=== PATIENT | female | born 1990 | race Caucasian/White ===

== ENCOUNTER 2024-08-09 11:24 | Emergency (ER) | payer BC ==
[2024-08-09] MEDS ORDERED: PRED50TA PO (23:12)
[2024-08-09] MEDS ORDERED: NITR100C6 PO (23:12)
== END 2024-08-09 16:00 | disposition home or self-care (01) ==
LOC: ER 11:30
DX: Z53.21 Procedure and treatment not carried out due to patient leaving prior to being seen by health care provider (principal)

== ENCOUNTER → 2024-08-09 | Emergency (ER) | payer BC ==
[~2024-08-09] VITALS: Ht 162.6 cm; Wt 67.1 kg
[~2024-08-09] MED LIST: NITR100C6 PO; PRED50TA PO; predniSONE 20 MG TABLET ONE
[2024-08-09] MEDS: predniSONE 50 MG TABLET PO ONE (22:58)
[2024-08-09 23:24] VITALS: BP 134/81; TEMP 98; O2SAT 99
== END | disposition left against medical advice (07) ==
LOC: EDUNIT# 22:24 → ER 22:24
DX: T78.40XA Allergy, unspecified, initial encounter (principal); I10 Essential (primary) hypertension; Z88.0 Allergy status to penicillin; Z88.2 Allergy status to sulfonamides; Y92.89 Other specified places as the place of occurrence of the external cause
CPT/HCPCS: 99283; J7512

== ENCOUNTER 2025-03-26 20:08 | Inpatient (IN) | payer BC ==
[~2025-03-26] VITALS: Ht 162.6 cm; Wt 72.1 kg
[~2025-03-26 20:08] MED LIST changes: -predniSONE 20 MG TABLET ONE
[2025-03-26] MEDS: IV NS 0.9% 1,000 ML BAG IV ONE (20:40)
[2025-03-26] MEDS ORDERED: FOLIC ACID 1 MG TABLET ONE (20:40)
[2025-03-26] MEDS ORDERED: ONDANSETRON HCL/PF 4 MG/2 ML VIAL ONE (20:40)
[2025-03-26] MEDS ORDERED: MULTIVITAMINS,THERAGRAN 1 UDTAB TABLET ONE (20:40)
[2025-03-26] MEDS ORDERED: THIAMINE HCL 100 MG TABLET ONE (20:40)
[2025-03-26 20:50] LABS: RED BLOOD CELL COUNT(AUTO) 4.00 MIL/uL (4.0-5.2); RED CELL DISTRIBUTION WIDTH 14.7 % (11.5-15.0); WHITE BLOOD COUNT (AUTO) 4.8 K/uL (4.3-11.0)
[2025-03-26 20:55] LABS: PLATELET COUNT (AUTO) 63 K/uL (150-450)
[2025-03-26 20:58] LABS: ASPARTATE AMINOTRANSFERASE 418.0 U/L (15-37); CALCIUM, SERUM 8.6 mg/dL (8.5-10.1); CREATININE 0.7 mg/dL (0.6-1.3); SODIUM SERUM 132.0 mmol/L (136-145); TOTAL PROTEIN, SERUM 7.7 g/dL (6.4-8.2); UREA NITROGEN, BLOOD 7.0 mg/dL (7-18)
[2025-03-26] MEDS: FOLIC ACID 1 MG TABLET PO ONE (21:02)
[2025-03-26] MEDS: MULTIVITAMINS,THERAGRAN 1 UDTAB TABLET PO SCH (21:02)
[2025-03-26] MEDS: THIAMINE HCL 100 MG TABLET PO ONE (21:03)
[2025-03-26 21:08] LABS: LYMPHOCYTES % (MANUAL) 3 % (16-48); MONOCYTES % (MANUAL) 6 % (0-11.0); NEUTROPHILS % (MANUAL) 91 (42-76)
[2025-03-26 21:09] LABS: PLATELET ESTIMATE DECREASED
[2025-03-26] MEDS: ONDANSETRON HCL/PF 4 MG/2 ML VIAL IVP ONE (21:09)
[2025-03-26] MEDS ORDERED: LEVETIRACETAM (500MG) 500 MG/5 ML VIAL IV ONE (21:11)
[2025-03-26] MEDS: LEVETIRACETAM (500MG) 1,000 MG in IV NS 0.9% 90 ML IV SCH (21:17)
[2025-03-26 21:58] LABS: APPEARANCE,URINE SLIGHTLY CLOUDY (CLEAR); BLOOD, URINE 2+ Ery/uL (NEGATIVE); LEUKOCYTE ESTERASE ,URINE NEGATIVE (NEGATIVE); NITRITE, URINE NEGATIVE (NEGATIVE); UGLUCOSE TRACE mg/dL (NEGATIVE)
[2025-03-26 21:59] LABS: PREGNANCY TEST URINE QUAL NEGATIVE (NEGATIVE)
[2025-03-26 22:07] LABS: ADD URINE CULTURE YES
[2025-03-26 22:08] LABS: FINE GRANULAR CASTS,URINE Few /LPF (None Seen)
[2025-03-26 22:46] LABS: AMPHETAMINE, URINE NEGATIVE (NEGATIVE); BARBITURATE, URINE NEGATIVE (NEGATIVE); BENZODIAZEPINE, URINE NEGATIVE (NEGATIVE); CANNABINOID, URINE NEGATIVE (NEGATIVE); COCCAINE, URINE NEGATIVE (NEGATIVE); OPIATE, URINE NEGATIVE (NEGATIVE)
[2025-03-26] MEDS ORDERED: ACETAMINOPHEN 325 MG TABLET PO PRN (23:00)
[2025-03-26] MEDS ORDERED: MAG HYDROX/AL HYDROX/SIMETH 30 ML UDC PO PRN (23:00)
[2025-03-26] MEDS ORDERED: MAGNESIUM HYDROXIDE 30 ML UDC PO PRN (23:00)
[2025-03-26] MEDS ORDERED: KETOROLAC TROMETHAMINE INJ 30 MG/ML VIAL ONE (23:05)
[2025-03-26] MEDS: KETOROLAC TROMETHAMINE INJ 30 MG/ML VIAL IV ONE (23:08)
[2025-03-26 23:42] LABS: INR 1.3 (0.91-1.10)
[2025-03-26] MEDS: IV D5/ 0.9% NACL 1,000 ML IV ONE (23:51)
[2025-03-27] MEDS: CHLORDIAZEPOXIDE HCL 25 MG CAPSULE PO SCH
[2025-03-27] MEDS ORDERED: ONDANSETRON HCL/PF 4 MG/2 ML VIAL ONE (01:40)
[2025-03-27] MEDS ORDERED: ACETAMINOPHEN 325 MG TABLET ONE (01:49)
[2025-03-27] MEDS: ONDANSETRON HCL/PF 4 MG/2 ML VIAL IVP PRN (01:52)
[2025-03-27] MEDS ORDERED: CHLORDIAZEPOXIDE HCL 25 MG CAPSULE ONE (02:09)
[2025-03-27] MEDS: IV NS 0.9% 1,000 ML IV PRN (04:17)
[2025-03-27 07:17] LABS: RED BLOOD CELL COUNT(AUTO) 3.49 MIL/uL (4.0-5.2); RED CELL DISTRIBUTION WIDTH 14.4 % (11.5-15.0); WHITE BLOOD COUNT (AUTO) 4.0 K/uL (4.3-11.0)
[2025-03-27 07:21] LABS: PLATELET COUNT (AUTO) 35 K/uL (150-450)
[2025-03-27 07:26] LABS: ASPARTATE AMINOTRANSFERASE 418 U/L (15-37); CALCIUM, SERUM 7.7 mg/dL (8.5-10.1); CREATININE 0.5 mg/dL (0.6-1.3); PHOSPHORUS 1.4 mg/dL (2.5-4.9); SODIUM SERUM 133 mmol/L (136-145); TOTAL PROTEIN, SERUM 6.4 g/dL (6.4-8.2); UREA NITROGEN, BLOOD 6 mg/dL (7-18)
[2025-03-27 07:27] LABS: LYMPHOCYTES % (MANUAL) 12 % (16-48); MONOCYTES % (MANUAL) 4 % (0-11.0); NEUTROPHILS % (MANUAL) 81 (42-76); PLATELET ESTIMATE DECREASED; REACTIVE LYMPHOCYTES 3 % (0-0)
[2025-03-27] MEDS ORDERED: AMPH30TA3 PO (07:40)
[2025-03-27] MEDS ORDERED: ALPR0.5T8 PO (07:40)
[2025-03-27] MEDS ORDERED: LEVE500T20 PO (07:40)
[2025-03-27] MEDS ORDERED: AMLO2.5T4 PO (07:40)
[2025-03-27 08:00] VITALS: BP 120/86; TEMP 98.1; O2SAT 96
[2025-03-27 08:17] LABS: LACTIC ACID 2.3 mmol/L (0.4-2.0)
[2025-03-27] MEDS ORDERED: LEVETIRACETAM (500MG) 500 MG in IV NS 0.9% 100 ML IV SCH (09:00)
[2025-03-27] MEDS ORDERED: MULTIVITAMINS,THERAGRAN 1 UDTAB TABLET PO SCH (09:00)
[2025-03-27] MEDS: PANTOPRAZOLE 40 MG VIAL IV SCH (09:09)
[2025-03-27] MEDS: LEVETIRACETAM (500MG) 1,000 MG in IV NS 0.9% 90 ML IV SCH (09:09)
[2025-03-27] MEDS: THIAMINE HCL 100 MG TABLET PO SCH (09:09)
[2025-03-27] MEDS ORDERED: LORAZEPAM INJ 2 MG/ML VIAL IM PRN (12:30)
[2025-03-27] MEDS: IV LR 1000 ML 1,000 ML IV SCH (12:37)
[2025-03-27] MEDS: Sodium Phosphate 15 MMOL in IV NS 0.9% 245 ML IV ONE (15:28)
[2025-03-27 15:59] VITALS: BP 114/75; TEMP 98.2; O2SAT 94
[2025-03-27 20:00] VITALS: BP 111/71; TEMP 98.2; O2SAT 97
[2025-03-27 21:52] VITALS: BP 128/70
[2025-03-28 01:47] VITALS: BP 132/82
[2025-03-28 06:33] LABS: INR 1.6 (0.91-1.10)
[2025-03-28 06:40] LABS: RED BLOOD CELL COUNT(AUTO) 3.18 MIL/uL (4.0-5.2); RED CELL DISTRIBUTION WIDTH 14.8 % (11.5-15.0); WHITE BLOOD COUNT (AUTO) 2.3 K/uL (4.3-11.0)
[2025-03-28 06:53] LABS: ASPARTATE AMINOTRANSFERASE 401.0 U/L (15-37); TOTAL PROTEIN, SERUM 6.0 g/dL (6.4-8.2)
[2025-03-28 07:03] LABS: SERUM AMMONIA 68.0 umol/L (11-32)
[2025-03-28 07:05] LABS: PLATELET COUNT (AUTO) 30 K/uL (150-450)
[2025-03-28 07:15] LABS: BAND % (MANUAL) 2 % (0.0-5.0); LYMPHOCYTES % (MANUAL) 23 % (16-48); MONOCYTES % (MANUAL) 1 % (0-11.0); NEUTROPHILS % (MANUAL) 74 (42-76)
[2025-03-28 07:16] LABS: PLATELET ESTIMATE DECREASED
[2025-03-28 07:24] LABS: CALCIUM, SERUM 8.2 mg/dL (8.5-10.1); CREATININE 0.5 mg/dL (0.6-1.3); PHOSPHORUS 1.2 mg/dL (2.5-4.9); SODIUM SERUM 137.0 mmol/L (136-145); UREA NITROGEN, BLOOD 5.0 mg/dL (7-18)
[2025-03-28 08:00] VITALS: BP 125/89; TEMP 99.7; O2SAT 98
[2025-03-28] MEDS: POTASSIUM CL. PREMIX PERIPHER. 50 ML IV SCH (11:00)
[2025-03-28] MEDS: Sodium Phosphate 30 MMOL in IV NS 0.9% 250 ML IV SCH (12:01)
[2025-03-28] MEDS: Thiamine 100 MG in IV D5W 50 ML IV SCH (13:04)
[2025-03-28] MEDS: Magnesium 1GM/D5W 100ML PREMIX 100 ML IV SCH (14:45)
[2025-03-28 16:01] VITALS: BP 125/85; TEMP 97.8; O2SAT 97
[2025-03-28 20:00] VITALS: BP 125/87; TEMP 98.2; O2SAT 97
[2025-03-28 21:07] LABS: HBSAG SCREEN Negative (Negative); HEPATITIS A AB, IgM Negative (Negative); HEPATITIS B CORE AB, IgM Negative (Negative)
[2025-03-29 06:42] LABS: INR 1.99 (0.91-1.10)
[2025-03-29 07:18] LABS: CALCIUM, SERUM 8.7 mg/dL (8.5-10.1); CREATININE 0.7 mg/dL (0.6-1.3); PHOSPHORUS 2.0 mg/dL (2.5-4.9); UREA NITROGEN, BLOOD 3.0 mg/dL (7-18)
[2025-03-29 07:29] LABS: ASPARTATE AMINOTRANSFERASE 361.0 U/L (15-37); TOTAL PROTEIN, SERUM 6.3 g/dL (6.4-8.2)
[2025-03-29] MEDS ORDERED: PHYTONADIONE 10 MG in IV D5W 50 ML SQ ONE (07:30)
[2025-03-29 07:31] LABS: RED BLOOD CELL COUNT(AUTO) 3.51 MIL/uL (4.0-5.2); RED CELL DISTRIBUTION WIDTH 14.8 % (11.5-15.0); WHITE BLOOD COUNT (AUTO) 2.6 K/uL (4.3-11.0)
[2025-03-29 07:33] LABS: SODIUM SERUM 136.0 mmol/L (136-145)
[2025-03-29 08:00] VITALS: BP 130/85; TEMP 98.4; O2SAT 100
[2025-03-29] MEDS ORDERED: PHYTONADIONE INJ 10 MG/1 ML AMPUL SQ ONE (08:00)
[2025-03-29] MEDS ORDERED: Magnesium 1GM/D5W 100ML PREMIX 100 ML IV SCH (08:30)
[2025-03-29] MEDS ORDERED: POTASSIUM CL. PREMIX PERIPHER. 50 ML IV SCH (08:30)
[2025-03-29 09:57] LABS: PLATELET COUNT (AUTO) 35 K/uL (150-450)
[2025-03-29] MEDS: POTASSIUM CL. PREMIX PERIPHER. 50 ML IV SCH (10:13)
[2025-03-29] MEDS: Magnesium 1GM/D5W 100ML PREMIX 100 ML IV SCH (11:14)
[2025-03-29 12:21] LABS: EOSINOPHILS % (MANUAL) 2 % (0-4); LYMPHOCYTES % (MANUAL) 25 % (16-48); MONOCYTES % (MANUAL) 8 % (0-11.0); NEUTROPHILS % (MANUAL) 65 (42-76); PLATELET ESTIMATE DECREASED
[2025-03-29] MEDS ORDERED: MAGNESIUM HYDROXIDE 30 ML UDC PO PRN (13:00)
[2025-03-29 15:03] LABS: CALCIUM, SERUM 8.3 mg/dL (8.5-10.1); CREATININE 0.6 mg/dL (0.6-1.3); SODIUM SERUM 129.0 mmol/L (136-145); UREA NITROGEN, BLOOD 3.0 mg/dL (7-18)
[2025-03-29 16:00] VITALS: BP 120/84; TEMP 98.4; O2SAT 100
[2025-03-29] MEDS: Sodium Phosphate 15 MMOL in IV NS 0.9% 245 ML IV ONE (17:41)
[2025-03-29 20:00] VITALS: BP 114/68; TEMP 98.6; O2SAT 96
[2025-03-30 07:26] LABS: INR 1.98 (0.91-1.10)
[2025-03-30 08:00] VITALS: BP 115/84; TEMP 99.7; O2SAT 94
[2025-03-30 08:07] LABS: ASPARTATE AMINOTRANSFERASE 224.0 U/L (15-37); TOTAL PROTEIN, SERUM 5.3 g/dL (6.4-8.2)
[2025-03-30 08:10] LABS: SERUM AMMONIA 105.0 umol/L (11-32)
[2025-03-30 08:26] LABS: CALCIUM, SERUM 8.4 mg/dL (8.5-10.1); CREATININE 0.4 mg/dL (0.6-1.3); PHOSPHORUS 2.1 mg/dL (2.5-4.9); SODIUM SERUM 136.0 mmol/L (136-145); UREA NITROGEN, BLOOD 0.0 mg/dL (7-18)
[2025-03-30 08:34] LABS: RED BLOOD CELL COUNT(AUTO) 3.13 MIL/uL (4.0-5.2); RED CELL DISTRIBUTION WIDTH 14.7 % (11.5-15.0); WHITE BLOOD COUNT (AUTO) 2.1 K/uL (4.3-11.0)
[2025-03-30] MEDS ORDERED: LACTULOSE 10 G/15 ML UDC (PYXIS) PO SCH (09:00)
[2025-03-30 10:33] LABS: PLATELET COUNT (AUTO) 32 K/uL (150-450)
[2025-03-30 11:46] LABS: LYMPHOCYTES % (MANUAL) 25 % (16-48); MONOCYTES % (MANUAL) 15 % (0-11.0); NEUTROPHILS % (MANUAL) 60 (42-76)
[2025-03-30] MEDS: THIAMINE HCL 100 MG TABLET PO SCH (11:46)
[2025-03-30] MEDS: PANTOPRAZOLE 40 MG TABLET.DR PO SCH (11:46)
[2025-03-30 11:47] LABS: PLATELET ESTIMATE DECREASED
[2025-03-30] MEDS: FOLIC ACID 1 MG TABLET PO SCH (11:48)
[2025-03-30] MEDS: MAGNESIUM OXIDE 400 MG TABLET PO ONE (12:41)
[2025-03-30] MEDS: POTASSIUM CHLORIDE 20 MEQ POWDER PACKET PO ONE (12:41)
[2025-03-30] MEDS: LACTULOSE 10 G/15 ML UDC (PYXIS) PO SCH (13:09)
[2025-03-30 16:00] VITALS: BP 113/74; TEMP 98.8; O2SAT 98
[2025-03-30 16:05] LABS: CALCIUM, SERUM 8.5 mg/dL (8.5-10.1); CREATININE 0.5 mg/dL (0.6-1.3); SODIUM SERUM 130.0 mmol/L (136-145); UREA NITROGEN, BLOOD 1.0 mg/dL (7-18)
[2025-03-30 16:09] LABS: PHOSPHORUS 1.3 mg/dL (2.5-4.9)
[2025-03-30] MEDS: K PHOS NEUTRAL 250 MG TABLET PO ONE (16:16)
[2025-03-30] MEDS: RIFAXIMIN 550 MG TABLET PO SCH (16:23)
[2025-03-30] MEDS: IV LR 1000 ML 1,000 ML IV PRN (18:26)
[2025-03-30 20:00] VITALS: BP 101/64; TEMP 98.4; O2SAT 99
[2025-03-30] MEDS: LOPERAMIDE HCL (2 MG CAP) 2 MG CAPSULE PO PRN (20:48)
[2025-03-31 07:53] LABS: SERUM AMMONIA 72.0 umol/L (11-32)
[2025-03-31 08:00] VITALS: BP 99/66; TEMP 98.2; O2SAT 100
[2025-03-31 08:04] LABS: CALCIUM, SERUM 8.5 mg/dL (8.5-10.1); CREATININE 0.4 mg/dL (0.6-1.3); PHOSPHORUS 1.9 mg/dL (2.5-4.9); SODIUM SERUM 136.0 mmol/L (136-145); UREA NITROGEN, BLOOD 1.0 mg/dL (7-18)
[2025-03-31 08:13] LABS: ASPARTATE AMINOTRANSFERASE 154.0 U/L (15-37); TOTAL PROTEIN, SERUM 5.3 g/dL (6.4-8.2)
[2025-03-31 08:25] LABS: RED BLOOD CELL COUNT(AUTO) 3.14 MIL/uL (4.0-5.2); RED CELL DISTRIBUTION WIDTH 14.8 % (11.5-15.0); WHITE BLOOD COUNT (AUTO) 2.3 K/uL (4.3-11.0)
[2025-03-31 08:36] LABS: PLATELET COUNT (AUTO) 43 K/uL (150-450)
[2025-03-31] MEDS ORDERED: LORAZEPAM 1 MG TABLET PO PRN (09:00)
[2025-03-31] MEDS: MAGNESIUM OXIDE 400 MG TABLET PO ONE (09:19)
[2025-03-31] MEDS: K PHOS NEUTRAL 250 MG TABLET PO ONE ×2 (09:20)
[2025-03-31] MEDS: POTASSIUM CHLORIDE 20 MEQ TAB.PRT.SR PO SCH (09:20)
[2025-03-31] MEDS ORDERED: K PHOS NEUTRAL 250 MG TABLET PO ONE (09:30)
[2025-03-31 10:36] LABS: LYMPHOCYTES % (MANUAL) 24 % (16-48); NEUTROPHILS % (MANUAL) 61 (42-76)
[2025-03-31 10:37] LABS: EOSINOPHILS % (MANUAL) 1 % (0-4); MONOCYTES % (MANUAL) 14 % (0-11.0); PLATELET ESTIMATE DECREASED
[2025-03-31 16:00] VITALS: BP 121/76; TEMP 98.4; O2SAT 95
[2025-03-31 20:00] VITALS: BP 105/72; TEMP 98.1; O2SAT 95
[2025-03-31 20:41] VITALS: BP 105/72; TEMP 98.1; O2SAT 95
[2025-04-01 06:34] LABS: PLATELET COUNT (AUTO) 61 K/uL (150-450); RED BLOOD CELL COUNT(AUTO) 3.08 MIL/uL (4.0-5.2); RED CELL DISTRIBUTION WIDTH 15.3 % (11.5-15.0); WHITE BLOOD COUNT (AUTO) 2.7 K/uL (4.3-11.0)
[2025-04-01 06:50] LABS: CALCIUM, SERUM 8.6 mg/dL (8.5-10.1); CREATININE 0.5 mg/dL (0.6-1.3); PHOSPHORUS 1.7 mg/dL (2.5-4.9); SODIUM SERUM 137.0 mmol/L (136-145); UREA NITROGEN, BLOOD 1.0 mg/dL (7-18)
[2025-04-01 07:02] LABS: SERUM AMMONIA 76.0 umol/L (11-32)
[2025-04-01 07:07] LABS: ASPARTATE AMINOTRANSFERASE 118.0 U/L (15-37); TOTAL PROTEIN, SERUM 5.2 g/dL (6.4-8.2)
[2025-04-01 08:00] VITALS: BP 110/79; TEMP 98.2; O2SAT 94
[2025-04-01] MEDS: MAGNESIUM OXIDE 400 MG TABLET PO ONE (08:18)
[2025-04-01] MEDS: POTASSIUM CHLORIDE 20 MEQ POWDER PACKET PO ONE (08:19)
[2025-04-01] MEDS: K PHOS NEUTRAL 250 MG TABLET PO ONE (08:19)
[2025-04-01 08:59] LABS: EOSINOPHILS % (MANUAL) 2 % (0-4); LYMPHOCYTES % (MANUAL) 18 % (16-48); MONOCYTES % (MANUAL) 23 % (0-11.0); NEUTROPHILS % (MANUAL) 57 (42-76)
[2025-04-01] MEDS: LEVETIRACETAM (250 MG) 250 MG TABLET PO SCH (08:59)
[2025-04-01] MEDS: LORAZEPAM 1 MG TABLET PO ONE (08:59)
[2025-04-01 09:00] VITALS: BP 110/74; TEMP 97.8; O2SAT 95
[2025-04-01 09:00] LABS: PLATELET ESTIMATE DECREASED
[2025-04-01 09:15] VITALS: BP 108/63; TEMP 98; O2SAT 95
[2025-04-01 09:30] VITALS: BP 111/68; TEMP 97.9; O2SAT 95
[2025-04-01 09:45] VITALS: BP 113/76; TEMP 98; O2SAT 96
[2025-04-01] MEDS: NEOMY SULF/BACITRAC ZN/POLY 15 GM TUBE TP SCH (10:38)
[2025-04-01] MEDS ORDERED: MULT-647 PO (10:48)
[2025-04-01] MEDS ORDERED: LACT10SO58 PO (10:48)
[2025-04-01] MEDS ORDERED: POTA-88 PO (10:48)
[2025-04-01] MEDS ORDERED: MAGN400T52 PO (10:48)
[2025-04-01] MEDS ORDERED: MAGN400T26 PO (11:03)
[2025-04-01] MEDS ORDERED: THIA100T68 PO (11:11)
[2025-04-01] MEDS ORDERED: FOLI0.4T6 PO (11:54)
[2025-04-01] MEDS ORDERED: LORA-259 PO (11:56)
== END 2025-04-01 16:00 | disposition home or self-care (01) | DRG 100 ==
LOC: ER 20:09 → MED 03-27 03:16
PROVIDERS: ADMIT Nurse Practitioner Family
DX: G40.909 Epilepsy, unspecified, not intractable, without status epilepticus (principal); K85.20 Alcohol induced acute pancreatitis without necrosis or infection; D68.9 Coagulation defect, unspecified; D61.818 Other pancytopenia; E87.1 Hypo-osmolality and hyponatremia; K70.10 Alcoholic hepatitis without ascites; F10.129 Alcohol abuse with intoxication, unspecified; E86.0 Dehydration; Y90.8 Blood alcohol level of 240 mg/100 ml or more; Z88.2 Allergy status to sulfonamides; Z88.0 Allergy status to penicillin; I10 Essential (primary) hypertension; E88.09 Other disorders of plasma-protein metabolism, not elsewhere classified; Z98.890 Other specified postprocedural states; Z79.899 Other long term (current) drug therapy; E83.39 Other disorders of phosphorus metabolism; E80.6 Other disorders of bilirubin metabolism; R74.01 Elevation of levels of liver transaminase levels; R73.9 Hyperglycemia, unspecified; R74.8 Abnormal levels of other serum enzymes; E83.42 Hypomagnesemia; E87.6 Hypokalemia
CPT/HCPCS: 36415; 70450-TC; 74181-TC; 76700-TC; 80048-TC; 80076-TC; 81001; 82140-TC; 83605-TC; 83690-TC; 83735-TC; 84100-TC; 84443-TC; 84703-TC; 85027-TC; 85610-TC; 87086-TC; 97112-TC; 97116-TC; 97530-TC; 98960; A4223; A9563; G0378; G0480; J1885; J1953; J2405; J2470; J3411; J3475; J3480; J3490; J7030; J7042; J7050; J7060; J7120

== ENCOUNTER 2025-04-03 07:32 | Inpatient (IN) | payer BC ==
[~2025-04-03] VITALS: Ht 162.6 cm; Wt 76.2 kg
[~2025-04-03 07:32] MED LIST changes: +ALPR0.5T8 PO; +AMLO2.5T4 PO; +AMPH30TA3 PO; +FOLI0.4T6 PO; +LACT10SO58 PO; +LEVE500T20 PO; +LORA-259 PO; +MAGN400T26 PO; +MULT-647 PO; -NITR100C6 PO; +POTA-88 PO; -PRED50TA PO; +THIA100T68 PO
[2025-04-03] MEDS: IV NS 0.9% 1,000 ML BAG IV ONE (07:51)
[2025-04-03 08:05] LABS: PLATELET COUNT (AUTO) 164 K/uL (150-450); RED BLOOD CELL COUNT(AUTO) 3.45 MIL/uL (4.0-5.2); RED CELL DISTRIBUTION WIDTH 16.0 % (11.5-15.0); WHITE BLOOD COUNT (AUTO) 3.8 K/uL (4.3-11.0)
[2025-04-03 08:11] LABS: CALCIUM, SERUM 9.0 mg/dL (8.5-10.1); CREATININE 0.4 mg/dL (0.6-1.3); SODIUM SERUM 134.0 mmol/L (136-145); UREA NITROGEN, BLOOD 1.0 mg/dL (7-18)
[2025-04-03 08:21] LABS: ASPARTATE AMINOTRANSFERASE 126.0 U/L (15-37); TOTAL PROTEIN, SERUM 6.0 g/dL (6.4-8.2)
[2025-04-03 08:43] LABS: INR 2.69 (0.91-1.10)
[2025-04-03 09:02] LABS: APPEARANCE,URINE CLEAR (CLEAR); BLOOD, URINE 1+ Ery/uL (NEGATIVE); LEUKOCYTE ESTERASE ,URINE NEGATIVE (NEGATIVE); NITRITE, URINE NEGATIVE (NEGATIVE); UGLUCOSE TRACE mg/dL (NEGATIVE)
[2025-04-03 09:03] LABS: PREGNANCY TEST URINE QUAL NEGATIVE (NEGATIVE)
[2025-04-03 09:08] LABS: ADD URINE CULTURE YES; SQUAMOUS EPITHELIAL CELL,UR Moderate /HPF (None Seen)
[2025-04-03 09:23] LABS: LYMPHOCYTES % (MANUAL) 16 % (16-48); MONOCYTES % (MANUAL) 14 % (0-11.0); NEUTROPHILS % (MANUAL) 70 (42-76); PLATELET ESTIMATE ADEQUATE
[2025-04-03] MEDS ORDERED: MAGN400T30 PO (09:35)
[2025-04-03] MEDS ORDERED: LACT10SO3 PO (09:35)
[2025-04-03] MEDS ORDERED: LORA-258 PO (09:35)
[2025-04-03] MEDS ORDERED: POTA-88 PO (09:35)
[2025-04-03] MEDS ORDERED: THIA100T70 PO (09:35)
[2025-04-03] MEDS ORDERED: FOLI0.4T6 PO (09:35)
[2025-04-03] MEDS ORDERED: MULT1TAB22 PO (09:35)
[2025-04-03] MEDS ORDERED: IOHEXOL-300 100 ML VIAL IV ONE (09:44)
[2025-04-03] MEDS ORDERED: IV NS 0.9% 250 ML IV ONE (09:44)
[2025-04-03] MEDS ORDERED: hydrALAZINE HCL IV 20 MG VIAL IV PRN (10:30)
[2025-04-03] MEDS ORDERED: RIFAXIMIN 550 MG TABLET PO SCH (10:30)
[2025-04-03] MEDS ORDERED: ALPRAZOLAM 0.5 MG TABLET PO PRN (10:30)
[2025-04-03] MEDS: RIFAXIMIN 550 MG TABLET PO SCH (12:23)
[2025-04-03] MEDS: LACTULOSE 10 G/15 ML UDC (PYXIS) PO SCH (12:23)
[2025-04-03 13:02] VITALS: BP 118/81; TEMP 98.3; O2SAT 98
[2025-04-03 16:05] VITALS: BP 93/52; TEMP 98.1; O2SAT 96
[2025-04-03] MEDS: LEVETIRACETAM (250 MG) 250 MG TABLET PO SCH (18:23)
[2025-04-03 20:00] VITALS: BP 106/71; TEMP 99; O2SAT 97
[2025-04-03] MEDS: BISACODYL SUPP (10 MG) 10 MG/SUPP.RECT SUPP.RECT RC ONE (20:49)
[2025-04-04 07:05] LABS: FIBRINOGEN ACTIVITY 187.0 Mg/dL (213-485); INR 2.96 (0.91-1.10)
[2025-04-04 07:14] LABS: ASPARTATE AMINOTRANSFERASE 117.0 U/L (15-37); CALCIUM, SERUM 8.4 mg/dL (8.5-10.1); CREATININE 0.5 mg/dL (0.6-1.3); PHOSPHORUS 2.1 mg/dL (2.5-4.9); SODIUM SERUM 136.0 mmol/L (136-145); TOTAL PROTEIN, SERUM 5.2 g/dL (6.4-8.2); UREA NITROGEN, BLOOD 2.0 mg/dL (7-18)
[2025-04-04 07:43] LABS: PLATELET COUNT (AUTO) 211 K/uL (150-450); RED BLOOD CELL COUNT(AUTO) 3.21 MIL/uL (4.0-5.2); RED CELL DISTRIBUTION WIDTH 15.9 % (11.5-15.0); WHITE BLOOD COUNT (AUTO) 3.8 K/uL (4.3-11.0)
[2025-04-04 08:00] VITALS: BP 122/73; TEMP 98.4; O2SAT 97
[2025-04-04] MEDS: THIAMINE HCL 100 MG TABLET PO SCH (08:07)
[2025-04-04] MEDS: FOLIC ACID 1 MG TABLET PO SCH (08:08)
[2025-04-04] MEDS: AMLODIPINE BESYLATE 2.5 MG TABLET PO SCH (08:08)
[2025-04-04] MEDS: MAGNESIUM OXIDE 400 MG TABLET PO ONE (09:54)
[2025-04-04] MEDS: POTASSIUM PHOSPHATE MM 15 MMOL in IV NS 0.9% 250 ML IV SCH (10:17)
[2025-04-04] MEDS: MORPHINE SULFATE INJ 2 MG/ML DISP.SYRIN IV PRN (10:32)
[2025-04-04 10:38] LABS: EOSINOPHILS % (MANUAL) 1 % (0-4); LYMPHOCYTES % (MANUAL) 20 % (16-48); MONOCYTES % (MANUAL) 29 % (0-11.0); NEUTROPHILS % (MANUAL) 50 (42-76); PLATELET ESTIMATE ADEQUATE
[2025-04-04] MEDS ORDERED: DOSING PER PHARMACY-CEFEPIME IVPB XX PRN (13:00)
[2025-04-04 13:52] LABS: RHEUMATOID FACTOR SCREEN NEGATIVE (NEGATIVE)
[2025-04-04 14:04] LABS: IRON, SERUM 69.0 ug/dl (50-175)
[2025-04-04] MEDS: CEFEPIME 2 GM in IV D5W 100 ML IV SCH (14:46)
[2025-04-04 16:00] VITALS: BP 91/65; TEMP 97.6; O2SAT 97
[2025-04-04 18:15] LABS: HIV-1/2 ANTIBODY NON REACTIVE (NONREACTIVE)
[2025-04-04 20:00] VITALS: BP 104/68; TEMP 98.8; O2SAT 97
[2025-04-05 07:35] LABS: FIBRINOGEN ACTIVITY 169.0 Mg/dL (213-485); INR 3.31 (0.91-1.10)
[2025-04-05 07:45] LABS: PLATELET COUNT (AUTO) 216 K/uL (150-450); RED BLOOD CELL COUNT(AUTO) 2.89 MIL/uL (4.0-5.2); RED CELL DISTRIBUTION WIDTH 15.7 % (11.5-15.0); WHITE BLOOD COUNT (AUTO) 3.9 K/uL (4.3-11.0)
[2025-04-05 07:54] LABS: CALCIUM, SERUM 8.0 mg/dL (8.5-10.1); CREATININE 0.4 mg/dL (0.6-1.3); PHOSPHORUS 3.9 mg/dL (2.5-4.9); SODIUM SERUM 137.0 mmol/L (136-145); UREA NITROGEN, BLOOD 2.0 mg/dL (7-18)
[2025-04-05 08:00] VITALS: BP 107/71; TEMP 99.1; O2SAT 95
[2025-04-05 08:07] LABS: IMMUNOGLOBULIN A, SERUM 209 mg/dL (87-352); IMMUNOGLOBULIN M, SERUM 127 mg/dL (26-217)
[2025-04-05] MEDS ORDERED: FOLIC ACID 1 MG TABLET PO SCH (09:00)
[2025-04-05 09:07] LABS: FREE KAPPA LT CHAINS SERUM 15.4 mg/L (3.3-19.4); FREE LAMBDA LT CHAIN SERUM 17.1 mg/L (5.7-26.3); KAPPA/LAMBDA RATIO SERUM 0.9 (0.26-1.65)
[2025-04-05] MEDS: MAGNESIUM OXIDE 400 MG TABLET PO ONE (10:11)
[2025-04-05] MEDS: POTASSIUM CL. PREMIX PERIPHER. 50 ML IV SCH (10:21)
[2025-04-05 11:07] LABS: FOLIC ACID 14.1 ng/mL (>3.0); HEPATITIS B CORE AB, TOTAL Negative (Negative); HEPATITIS B SURFACE AB (QUAL) Reactive (.)
[2025-04-05 11:38] LABS: EOSINOPHILS % (MANUAL) 1 % (0-4); LYMPHOCYTES % (MANUAL) 17 % (16-48); MONOCYTES % (MANUAL) 28 % (0-11.0); NEUTROPHILS % (MANUAL) 54 (42-76); PLATELET ESTIMATE ADEQUATE
[2025-04-05] MEDS: PHYTONADIONE INJ 10 MG/1 ML AMPUL SQ ONE (14:19)
[2025-04-05 15:50] LABS: ASPARTATE AMINOTRANSFERASE 145.0 U/L (15-37); TOTAL PROTEIN, SERUM 4.9 g/dL (6.4-8.2)
[2025-04-05 15:51] VITALS: BP 113/79; TEMP 99.5; O2SAT 98
[2025-04-05 16:00] VITALS: BP 113/79; TEMP 99.5; O2SAT 98
[2025-04-05 17:40] VITALS: TEMP 100.4
[2025-04-05 18:21] LABS: OCCULT BLOOD STOOL NEGATIVE (NEGATIVE)
[2025-04-05] MEDS: ACETAMINOPHEN 325 MG TABLET PO PRN (18:22)
[2025-04-05 20:00] VITALS: BP 102/56; TEMP 99.1; O2SAT 95
[2025-04-05] MEDS: SIMETHICONE 80 MG TAB.CHEW PO PRN (22:31)
[2025-04-06 06:40] LABS: PLATELET COUNT (AUTO) 228 K/uL (150-450); RED BLOOD CELL COUNT(AUTO) 2.79 MIL/uL (4.0-5.2); RED CELL DISTRIBUTION WIDTH 15.8 % (11.5-15.0); WHITE BLOOD COUNT (AUTO) 4.2 K/uL (4.3-11.0)
[2025-04-06 06:43] LABS: INR 3.48 (0.91-1.10)
[2025-04-06 07:04] LABS: FIBRINOGEN ACTIVITY 163.0 Mg/dL (213-485)
[2025-04-06 07:10] LABS: ASPARTATE AMINOTRANSFERASE 133.0 U/L (15-37); CALCIUM, SERUM 7.7 mg/dL (8.5-10.1); CREATININE 0.4 mg/dL (0.6-1.3); SODIUM SERUM 138.0 mmol/L (136-145); TOTAL PROTEIN, SERUM 4.8 g/dL (6.4-8.2); UREA NITROGEN, BLOOD 2.0 mg/dL (7-18)
[2025-04-06 07:49] LABS: EOSINOPHILS % (MANUAL) 2 % (0-4); LYMPHOCYTES % (MANUAL) 15 % (16-48); MONOCYTES % (MANUAL) 17 % (0-11.0); NEUTROPHILS % (MANUAL) 62 (42-76); PLATELET ESTIMATE ADEQUATE; REACTIVE LYMPHOCYTES 4 % (0-0)
[2025-04-06 08:00] VITALS: BP 104/69; TEMP 98.1; O2SAT 90
[2025-04-06] MEDS: POTASSIUM CHLORIDE 20 MEQ POWDER PACKET PO SCH (10:26)
[2025-04-06 15:07] LABS: *ANA ANTI-CENTROMERE B AB <0.2 AI (0.0-0.9); *ANA ANTI-DNA(DS) AB, QN 2 IU/mL (0-9); *ANA ANTI-JO-1 <0.2 AI (0.0-0.9); *ANA ANTICHROMATIN ANTIBODY <0.2 AI (0.0-0.9); *ANA RNP ANTIBODIES 0.3 AI (0.0-0.9); *ANA SJOGREN'S ANTI-SS-A <0.2 AI (0.0-0.9); *ANA SJOGREN'S ANTI-SS-B <0.2 AI (0.0-0.9); *ANAANTI-SCLERODERMA-70 AB <0.2 AI (0.0-0.9); *ANASMITH AB <0.2 AI (0.0-0.9)
[2025-04-06 16:00] VITALS: BP 107/69; TEMP 98.6; O2SAT 94
[2025-04-06] MEDS: ONDANSETRON HCL/PF 4 MG/2 ML VIAL IVP PRN (16:50)
[2025-04-06 20:00] VITALS: BP 105/67; TEMP 98.6; O2SAT 95
[2025-04-06] MEDS: GUAIFENESIN/D-METHORPHAN HB 5 ML UDC PO PRN (22:39)
[2025-04-07 06:38] LABS: CALCIUM, SERUM 8.2 mg/dL (8.5-10.1); CREATININE 0.4 mg/dL (0.6-1.3); SODIUM SERUM 137.0 mmol/L (136-145); UREA NITROGEN, BLOOD 3.0 mg/dL (7-18)
[2025-04-07 06:53] LABS: FIBRINOGEN ACTIVITY 163.0 Mg/dL (213-485); INR 2.81 (0.91-1.10)
[2025-04-07 07:00] VITALS: BP 94/64; TEMP 97.3; O2SAT 95
[2025-04-07 08:32] LABS: PLATELET COUNT (AUTO) 272 K/uL (150-450); RED BLOOD CELL COUNT(AUTO) 2.95 MIL/uL (4.0-5.2); RED CELL DISTRIBUTION WIDTH 15.9 % (11.5-15.0); WHITE BLOOD COUNT (AUTO) 4.5 K/uL (4.3-11.0)
[2025-04-07 08:48] LABS: ASPARTATE AMINOTRANSFERASE 156.0 U/L (15-37); TOTAL PROTEIN, SERUM 4.9 g/dL (6.4-8.2)
[2025-04-07] MEDS: POTASSIUM CHLORIDE 20 MEQ TAB.PRT.SR PO SCH (10:16)
[2025-04-07 10:17] LABS: LYMPHOCYTES % (MANUAL) 18 % (16-48); MONOCYTES % (MANUAL) 24 % (0-11.0); NEUTROPHILS % (MANUAL) 57 (42-76)
[2025-04-07 10:18] LABS: EOSINOPHILS % (MANUAL) 1 % (0-4); PLATELET ESTIMATE ADEQUATE
[2025-04-07] MEDS: oxyCODONE/APAP (5/325 MG) 1 UDTAB TABLET PO PRN (12:25)
[2025-04-07 16:00] VITALS: BP 102/70; TEMP 99.7; O2SAT 95
[2025-04-07 20:00] VITALS: BP 111/73; TEMP 98.6; O2SAT 93
[2025-04-07 21:05] VITALS: BP 111/73; TEMP 98.6; O2SAT 93
[2025-04-08 07:16] LABS: ASPARTATE AMINOTRANSFERASE 154.0 U/L (15-37); CALCIUM, SERUM 8.2 mg/dL (8.5-10.1); CREATININE 0.5 mg/dL (0.6-1.3); SODIUM SERUM 137.0 mmol/L (136-145); TOTAL PROTEIN, SERUM 4.9 g/dL (6.4-8.2); UREA NITROGEN, BLOOD 2.0 mg/dL (7-18)
[2025-04-08 07:30] VITALS: BP 106/78; TEMP 98.1; O2SAT 93
[2025-04-08 07:51] LABS: FIBRINOGEN ACTIVITY 159.0 Mg/dL (213-485); INR 2.59 (0.91-1.10)
[2025-04-08 08:48] LABS: PLATELET COUNT (AUTO) 275 K/uL (150-450); RED BLOOD CELL COUNT(AUTO) 3.22 MIL/uL (4.0-5.2); RED CELL DISTRIBUTION WIDTH 16.0 % (11.5-15.0); WHITE BLOOD COUNT (AUTO) 6.0 K/uL (4.3-11.0)
[2025-04-08 11:13] LABS: EOSINOPHILS % (MANUAL) 1 % (0-4); LYMPHOCYTES % (MANUAL) 16 % (16-48); MONOCYTES % (MANUAL) 15 % (0-11.0); NEUTROPHILS % (MANUAL) 68 (42-76); PLATELET ESTIMATE ADEQUATE
[2025-04-08 11:40] VITALS: BP 114/78
[2025-04-08 16:00] VITALS: BP 120/82; TEMP 97.5; O2SAT 96
[2025-04-08 20:00] VITALS: BP_SYST 118; BP_DIAS 104; BP_DIAS 90; TEMP 97.5; TEMP 97.7; O2SAT 94
[2025-04-08 21:15] VITALS: BP 102/60
[2025-04-09 02:22] VITALS: BP 107/71; TEMP 97.5; O2SAT 99
[2025-04-09 07:05] LABS: ASPARTATE AMINOTRANSFERASE 154.0 U/L (15-37); CALCIUM, SERUM 8.0 mg/dL (8.5-10.1); CREATININE 0.7 mg/dL (0.6-1.3); SODIUM SERUM 134.0 mmol/L (136-145); TOTAL PROTEIN, SERUM 4.8 g/dL (6.4-8.2); UREA NITROGEN, BLOOD 4.0 mg/dL (7-18)
[2025-04-09 07:15] LABS: FIBRINOGEN ACTIVITY 139.0 Mg/dL (213-485); INR 2.5 (0.91-1.10)
[2025-04-09 08:47] LABS: PLATELET COUNT (AUTO) 268 K/uL (150-450); RED BLOOD CELL COUNT(AUTO) 3.36 MIL/uL (4.0-5.2); RED CELL DISTRIBUTION WIDTH 16.1 % (11.5-15.0); WHITE BLOOD COUNT (AUTO) 7.8 K/uL (4.3-11.0)
[2025-04-09 08:51] VITALS: BP 107/71; TEMP 97.7; O2SAT 95
[2025-04-09] MEDS ORDERED: VANC1VIA34 XX (20:01)
[2025-04-09] MEDS ORDERED: CEFE2FRO IV (20:01)
[2025-04-09] MEDS ORDERED: RIFA550T PO (20:01)
== END 2025-04-09 22:50 | disposition short-term general hospital (02) | DRG 432 ==
LOC: ER 07:35 → TELE 11:17 → MED 20:15
PROVIDERS: ADMIT Internal Medicine; ATTEND Internal Medicine
DX: K70.10 Alcoholic hepatitis without ascites (principal); K85.20 Alcohol induced acute pancreatitis without necrosis or infection; D68.9 Coagulation defect, unspecified; E87.1 Hypo-osmolality and hyponatremia; F10.188 Alcohol abuse with other alcohol-induced disorder; K80.10 Calculus of gallbladder with chronic cholecystitis without obstruction; K86.0 Alcohol-induced chronic pancreatitis; G62.1 Alcoholic polyneuropathy; E87.6 Hypokalemia; E86.0 Dehydration; D72.821 Monocytosis (symptomatic); E83.42 Hypomagnesemia; F10.10 Alcohol abuse, uncomplicated; Y90.0 Blood alcohol level of less than 20 mg/100 ml; K70.30 Alcoholic cirrhosis of liver without ascites; K72.90 Hepatic failure, unspecified without coma; Z98.890 Other specified postprocedural states; I10 Essential (primary) hypertension; Z88.1 Allergy status to other antibiotic agents; Z88.5 Allergy status to narcotic agent; Z88.0 Allergy status to penicillin; Z88.2 Allergy status to sulfonamides; Z79.899 Other long term (current) drug therapy; G40.909 Epilepsy, unspecified, not intractable, without status epilepticus; E83.39 Other disorders of phosphorus metabolism; E88.09 Other disorders of plasma-protein metabolism, not elsewhere classified; E80.6 Other disorders of bilirubin metabolism; R73.9 Hyperglycemia, unspecified; R74.01 Elevation of levels of liver transaminase levels; K76.0 Fatty (change of) liver, not elsewhere classified; K82.8 Other specified diseases of gallbladder; F12.90 Cannabis use, unspecified, uncomplicated; Y90.9 Presence of alcohol in blood, level not specified; D64.9 Anemia, unspecified
CPT/HCPCS: 36415; 71045-TC; 76700-TC; 76705-TC; 78226; 80048-TC; 80053-TC; 80076-TC; 81001; 82140-TC; 82272-TC; 82550-TC; 82607-TC; 82728-TC; 82784; 83540-TC; 83690-TC; 83735-TC; 84100-TC; 84155; 84165; 84443-TC; 84703-TC; 85025-TC; 85027-TC; 85396; 85610-TC; 86225; 86235; 86334; 86431-TC; 86704; 86706; 86803; 86850-TC; 87040-TC; 87081-TC; 87086-TC; 87340; 87806; 93307-TC; A4223; A9537; G0378; G0480; J0692; J2270; J2405; J3430; J3480; J3490; J7030; J7040; J7050; J7060; Q9967